=== PATIENT | female | born 1945 | race African-American/Black ===

== ENCOUNTER 2017-05-17 08:43 | Inpatient (IN) | payer MEDICARE, OTHER ==
[~2017-05-17] VITALS: Ht 172.7 cm; Wt 113.4 kg
--- NOTE | 2017-05-17 08:45 | NUR ---
pressure like chest pain , sob since 2099 yesterday. gowned pt. placed on monitor.
--- NOTE | 2017-05-17 08:50 | NUR ---
DR COPELAND AT BEDSIDE FOR EVAL
[2017-05-17] MEDS ORDERED: NITROGLYCERIN PACKET 1 GM PACKET ONE (08:57)
[2017-05-17] MEDS ORDERED: ASPIRIN 325 MG TABLET ONE (08:57)
[2017-05-17] MEDS ORDERED: NITROGLYCERIN PACKET 1 GM PACKET TD ONE (09:00)
[2017-05-17] MEDS ORDERED: ASPIRIN 325 MG TABLET PO ONE (09:00)
--- NOTE | 2017-05-17 09:09 | NUR ---
LAC #18 IV ACCESS. BLOOD SAMPLE COLLECTED SENT TO LAB
[2017-05-17 09:12] LABS: BASOPHILS % (AUTO) 0.4 % (0.0-2.0); EOSINOPHILS # (AUTO) 0.1 /CMM (0.0-0.7); EOSINOPHILS % (AUTO) 0.7 % (0.0-6.0); HEMATOCRIT 37 % (33-45); HEMOGLOBIN 12.3 g/dL (11.5-14.8); LYMPHOCYTES # (AUTO) 2.4 /CMM (0.8-4.8); LYMPHOCYTES % (AUTO) 33.5 % (20.0-44.0); MEAN CORPUSCULAR HEMOGLOBIN 28 PG (26.0-33.0); MEAN CORPUSCULAR HGB CONC 33 g/dl (31.0-36.0); MEAN CORPUSCULAR VOLUME 85 fL (82-100); MONOCYTES # (AUTO) 0.4 /CMM (0.1-1.30); NEUTROPHILS # (AUTO) 4.3 /CMM (1.8-8.9); NEUTROPHILS % (AUTO) 60.4 % (43.0-81.0); PLATELET COUNT (AUTO) 208 /CMM (150-450); RDW COEFFICIENT OF VARIATION 15.7 (11.5-15.0); WHITE BLOOD COUNT (AUTO) 7.2 K/uL (4.3-11.0)
[2017-05-17 09:25] LABS: INR 0.92 (0.87-1.13); PROTHROMBIN TIME 9.6 SECS (9.5-12.7)
[2017-05-17 09:26] LABS: CALCIUM, SERUM 9.3 mg/dL (8.5-10.1); CARBON DIOXIDE 29 mmol/L (21-32); CHLORIDE 106 mmol/L (98-107); CREATININE 1.1 mg/dL (0.6-1.3); GLUCOSE 101 mg/dL (74-106); POTASSIUM 3.4 mmol/L (3.5-5.1); SODIUM SERUM 143 mmol/L (136-145); UREA NITROGEN, BLOOD 12 mg/dL (7-18)
[2017-05-17] MEDS ORDERED: OLME1TAB50 PO (09:29)
[2017-05-17] MEDS ORDERED: ATOR10TA PO (09:29)
[2017-05-17] MEDS ORDERED: ASPI81TA2 PO (09:29)
[2017-05-17] MEDS ORDERED: DULA1.5P SQ (09:29)
[2017-05-17] MEDS ORDERED: ALLO300T2 PO (09:29)
[2017-05-17] MEDS ORDERED: BLOO-668 IN (09:31)
[2017-05-17 09:35] LABS: TROPONIN I < 0.017 ng/mL (0.00-0.056)
--- NOTE | 2017-05-17 09:46 | NUR ---
PANEL ON-CALL PAGED
--- NOTE | 2017-05-17 10:35 | NUR ---
GAVE REPORT TO LAKSHMI SRIVASTAVA TELE ROOM [address] DR MATIAS ADMITTING CHEST PAIN DX
--- NOTE | 2017-05-17 10:42 | NUR ---
PANEL ON-CALL PAGED AGAIN
--- NOTE | 2017-05-17 11:00 | NUR ---
BEATER ROOM HELPERMETEOROLOGICAL EQUIPMENT REPAIRER NOTE PATIENT IS ALERT AND ORIENTED x4. NO PAIN AT THIS TIME. NO SOB OR DISTRESS NOTED. CALL LIGHT WITHIN REACH. SAFETY MEASURES IMPLEMENTED. ABLE TO COMMUNICATE NEEDS. NO CHEST PAIN AT THIS TIME. PATIENT HAS HISTORY OF HLD, HTN, GOUT, AND DM. MED RECON DONE. AWAITING FOR MD ORDERS AT THIS TIME. LEFT AC 18G IV INTACT AND PATENT NO REDNESS OR SWELLING NOTED. ON ROOM AIR, O2 SAT AT 97%. ON TELE MONITOR- SR - 66. SKIN INTACT. ALL BELONGINGS WITH PATIENT AT BEDSIDE. WILL CONTINUE TO MONITOR
[2017-05-17 11:15] VITALS: BP 100/59
[2017-05-17] MEDS: ASPIRIN 81 MG TAB.CHEW PO SCH (11:30)
[2017-05-17] MEDS: BLOOD SUGAR DIAGNOSTIC 1 EACH STRIP IN SCH ×3 (11:52→21:06)
[2017-05-17] MEDS ORDERED: ZOLPIDEM TARTRATE 5 MG TABLET PO PRN (12:00)
[2017-05-17] MEDS ORDERED: NITROGLYCERIN 0.4 MG/TAB BOTTLE SL PRN (12:00)
[2017-05-17] MEDS ORDERED: POTASSIUM CHLORIDE 20 MEQ TAB.PRT.SR PO SCH (12:00)
[2017-05-17] MEDS ORDERED: HYDROCODONE/APAP 5/325MG 1 EACH TABLET PO PRN (12:00)
[2017-05-17] MEDS ORDERED: MAGNESIUM HYDROXIDE 30 ML UDC PO PRN (12:00)
[2017-05-17] MEDS ORDERED: Z GUARD REMEDY 2 OZ OINT TP PRN (12:00)
[2017-05-17] MEDS ORDERED: ACETAMINOPHEN 325 MG TABLET PO PRN (12:00)
[2017-05-17] MEDS ORDERED: MAG HYDROX/AL HYDROX/SIMETH 30 ML UDC PO PRN (12:00)
[2017-05-17] MEDS ORDERED: ONDANSETRON HCL/PF 4 MG/2 ML VIAL IVP PRN (12:00)
[2017-05-17] MEDS ORDERED: MORPHINE SULFATE INJ 2 MG/ML DISP.SYRIN IV PRN (12:00)
[2017-05-17 12:14] LABS: THYROID STIMULATING HORMONE 1.319 uIU/mL (0.358-3.74)
[2017-05-17] MEDS: ATORVASTATIN 10 MG TABLET PO SCH (12:29)
[2017-05-17] MEDS ORDERED: DEXTROSE 50%-WATER 50 ML DISP.SYRIN IV PRN (12:30)
[2017-05-17 16:00] VITALS: BP 131/68
--- NOTE | 2017-05-17 18:24 | NUR ---
LEATHER SCRUBBER NOTE PATIENT IS ALERT AND ORIENTED x4. NO PAIN AT THIS TIME. NO SOB OR DISTRESS NOTED. CALL LIGHT WITHIN REACH SAFETY MEASURES IMPLEMENTED. ABLE TO COMMUNICATE NEEDS. ALL DUE MEDICATIONS GIVEN ORDERED BY MD. BLOOD SUGAR MONITORED THROUGHOUT SHIFT. NO REPORTS OF CHEST PAIN. CCHO DIET, NO IVF. TELE MONITOR AT 66. IV ON LEFT AC INTACT AND PATENT NO REDNESS OR SWELLING NOTED. WILL ENDORSE TO EDI ARCHITECT NURSE FOR RICKEY
--- NOTE | 2017-05-17 19:05 | NUR ---
LIVE[employer]OCK FARM WORKERS OPENING NOTES: RECEIVED PT RESTING IN BED. PT IS A/OX4. PT DENIES ANY PAIN AT THIS TIME. NO SOB OR DISTRESS NOTED. BED KEPT IN LOW, LOCKED POSITION, AND SIDE RAILS X 2 UP. CALL LIGHT WITHIN PT'S REACH. PT ON TELE MONITOR. IV IS ON L AC. WILL CONTINUE TO MONITOR PT.
[2017-05-17 20:00] VITALS: BP 112/57
[2017-05-17] MEDS: INSULIN REGULAR, HUMAN 100 UNIT/ML 3 ML VIAL SQ PRN (21:19)
--- NOTE | 2017-05-17 21:20 | NUR ---
MAIL PROCESSING MACHINE OPERATOR NOTES: BLOOD SUGAR WAS 121. NO INSULIN WAS ADMINISTERED. WILL CONTINUE TO MONITOR PT.
[2017-05-18] VITALS: BP 114/57
[2017-05-18 04:00] VITALS: BP 93/48
[2017-05-18] MEDS: BLOOD SUGAR DIAGNOSTIC 1 EACH STRIP IN SCH ×2 (06:18)
--- NOTE | 2017-05-18 06:18 | NUR ---
VETERINARY TECHNOLOGY INSTRUCTOR NOTES: THERE WAS A DUPLICATE ACCHU-CHEK FOR 730 IN THE EMAR SO I NON-ADMINISTERED ONE OF THEM.
[2017-05-18] MEDS: INSULIN REGULAR, HUMAN 100 UNIT/ML 3 ML VIAL SQ PRN (06:33)
--- NOTE | 2017-05-18 06:33 | NUR ---
PAINTER RAILROAD CAR NOTES: BLOOD SUGAR THIS AM WAS 82. NO INSULIN WAS ADMINISTERED. WILL CONTINUE TO MONITOR PT.
--- NOTE | 2017-05-18 07:27 | NUR ---
MEDICAL CASE WORKER CLOSING NOTES: ALL NEEDS WERE ATTENDED AND ANTICIPATED FOR. PT IS RESTING UP ON HER BED AND IS CURRENTLY ON HER PHONE. PT IS A/OX4. PT DENIES ANY PAIN AT THIS TIME. NO SOB OR DISTRESS NOTED. BED KEPT IN LOW, LOCKED POSITION, AND SIDE RAILS X 2 UP. CALL LIGHT WITHIN PT'S REACH. PT ON TELE MONITOR AND IS SR 71. IV IS ON L AC #18G AND IS PATENT AND INTACT. PT CURRENTLY H/L. ENDORSED TO AM NURSE FOR RICKEY.
[2017-05-18 08:13] LABS: BASOPHILS % (AUTO) 0.6 % (0.0-2.0); EOSINOPHILS # (AUTO) 0.1 /CMM (0.0-0.7); EOSINOPHILS % (AUTO) 1.4 % (0.0-6.0); HEMATOCRIT 37 % (33-45); HEMOGLOBIN 12.1 g/dL (11.5-14.8); MEAN CORPUSCULAR HEMOGLOBIN 28 PG (26.0-33.0); MEAN CORPUSCULAR HGB CONC 33 g/dl (31.0-36.0); MEAN CORPUSCULAR VOLUME 85 fL (82-100); MONOCYTES # (AUTO) 0.3 /CMM (0.1-1.30); MONOCYTES % (AUTO) 4.5 % (2.0-12.0); NEUTROPHILS # (AUTO) 4.3 /CMM (1.8-8.9); NEUTROPHILS % (AUTO) 63.5 % (43.0-81.0); PLATELET COUNT (AUTO) 204 /CMM (150-450); RED BLOOD CELL COUNT(AUTO) 4.31 MIL/uL (4.0-5.2); WHITE BLOOD COUNT (AUTO) 6.8 K/uL (4.3-11.0)
[2017-05-18 08:16] LABS: ALANINE AMINOTRANSFERASE 18 U/L (12-78); ALKALINE PHOSPHATASE 95 U/L (46-116); ASPARTATE AMINOTRANSFERASE 19 U/L (15-37); BILIRUBIN,TOTAL 0.7 mg/dL (0.2-1.0); CARBON DIOXIDE 28 mmol/L (21-32); CHLORIDE 107 mmol/L (98-107); GLUCOSE 84 mg/dL (74-106); MAGNESIUM 1.9 mg/dL (1.8-2.4); PHOSPHORUS 3.5 mg/dL (2.5-4.9); POTASSIUM 3.8 mmol/L (3.5-5.1); SODIUM SERUM 142 mmol/L (136-145); UREA NITROGEN, BLOOD 14 mg/dL (7-18)
[2017-05-18 08:26] LABS: TROPONIN I < 0.017 ng/mL (0.00-0.056)
[2017-05-18] MEDS ORDERED: ALLOPURINOL 100 MG TABLET PO SCH (09:00)
[2017-05-18] MEDS ORDERED: BENICAR HCT PO SCH (09:00)
--- NOTE | 2017-05-18 09:00 | NUR ---
rn notes RECEIVED PATIENT AT THIS TIME IN THE BED A/O X4, NO RESPIRATORY DISTRESS, NO C/O PAIN, ENCOURAGED TO EXPRESS FEELINGS AND CONCERNS, PATIENT MED COMPLIANT, V/S STABLE, PATIENT AMBULATORY SELF CARE, GOING TO D/C HOME, PATIENTS NEEDS ATTENDED AND ANTICIPATE, CALL LIGHT WITHIN TI REACH, SAFETY PRECAUTION MAINTAINED ALL THE TIME.
[2017-05-18] MEDS: ASPIRIN 81 MG TAB.CHEW PO SCH (09:09)
[2017-05-18] MEDS: ATORVASTATIN 10 MG TABLET PO SCH (09:09)
--- NOTE | 2017-05-18 11:47 | NUR ---
PRODUCT MARKETING INTERN NOTES PATIENT GOING TO DISCHARGE AT THIS TIME GOING HOME. PATIENT STABLE TO D/C, MEDICALLY STABLE, V/S WNL, PATIENT AMBULATORY SELF CARE, NO RESPIRATORY DISTRESS. DISCHARGE ORDER REVIEWED AND EXPLAINED TO PATIENT . PATIENT VERBALIZED UNDERSTANDING. BELONGING RETURNED BACK TO THE PATIENT, PATIENT LOCK MAINTENANCE SUPERVISOR BY CAB. ESCORTED PATIENT TO THE LOBBY FOR SAFETY.
== END 2017-05-18 12:00 | disposition home or self-care (01) | DRG 303 ==
LOC: ER 08:44 → TELE 10:32 → MED 05-18 09:40
PROVIDERS: ADMIT Internal Medicine; ATTEND Internal Medicine
DX: I25.10 Atherosclerotic heart disease of native coronary artery without angina pectoris (principal); E11.9 Type 2 diabetes mellitus without complications; E66.9 Obesity, unspecified; E78.5 Hyperlipidemia, unspecified; I10 Essential (primary) hypertension; Z96.659 Presence of unspecified artificial knee joint; Z68.38 Body mass index [BMI] 38.0-38.9, adult
CPT/HCPCS: 36415; 71010-TC; 80048-TC; 80053-TC; 80061-TC; 82306; 82728-TC; 82962-TC; 83540-TC; 83735-TC; 84100-TC; 84439-TC; 84443-TC; 84484-TC; 85025-TC; 85730-TC; 87081-TC; 93307-TC; A4606; J1815; Z7610